=== PATIENT | female | born 1965 | race Caucasian/White ===

== ENCOUNTER 2017-04-04 11:59 | Emergency (ER) | payer OTHER ==
[~2017-04-04] VITALS: Ht 175.3 cm; Wt 82.0 kg
[2017-04-04 12:00] VITALS: BP 137/80; PULSE 80; RESP 16; TEMP 98.4; O2SAT 97
--- NOTE | 2017-04-04 12:11 | PD ---
Physical Exam Time Seen by Provider: 12:08 Narrative 52-year-old female presents emergency Department with complaint of a pulled muscle to her left rib cage area after lifting something into the trunk of her car and coughing at the same time on Sunday. Pain has worsened since after returning back to work. Denies abdominal pain, chest pain, shortness of breath. Patient seen in triage. Vital signs reviewed. Patient awaiting bed placement. Data Data Last Documented VS Vital Signs Date Time Temp Pulse Resp B/P (MAP) Pulse Ox O2 Delivery O2 Flow Rate FiO2 04/04/17 12:00 98.4 80 16 137/80 (99) 97 MDM Supervised Visit with JÚNIOR: No Scripts No Active Prescriptions or Reported Meds Jeanna Miranda Apr 04, 2017 12:11
--- NOTE | 2017-04-04 14:17 | PD ---
HPI Chief Complaint: Pain: Acute or Chronic Time Seen by Provider: 14:08 Travel History International Travel<30 days: No Contact w/Intl Traveler<30days: No Traveled to known affect area: No History of Present Illness HPI 52-year-old female presents or Department with history of sudden onset pain in the left anterior lateral lower rib cage from lifting a suitcase and coughing in exactly the same time. She states she did that 3 days ago. She 's been taking Aleve without much improvement. She denies fever, chills, productive cough or significant shortness of breath other than from the discomfort. Patient works as a [employer] and was unable to go to work and perform her job if she has increased pain with movement and lifting. Patient's pain is 9 out of 10 and worse with movement and cough. She denies abdominal pain or back pain. She has no leg cramps or edema. She has no known drug allergies. PFSH Past Medical History ?: Not Social History Alcohol Use: Yes Tobacco Use: Yes Substance Use: No Allergies-Medications (Allergen,Severity, Reaction): Coded Allergies: No Known Allergies (Unverified , 04/04/17) Reported Meds & Prescriptions Reported Meds & Active Scripts Active No Active Prescriptions or Reported Medications Review of Systems Except as stated in HPI: all other systems reviewed are Neg General / Constitutional: No: Fever Eyes: No: Visual changes HENT: No: Headaches Cardiovascular: No: Chest Pain or Discomfort Respiratory: Positive: Pleuritic Pain, No: Cough, Shortness of Breath, Wheezing , Sneezing Gastrointestinal: No: Abdominal Pain Genitourinary: No: Dysuria Musculoskeletal: Positive: Pain (see history of present illness), No: Myalgias , Arthralgias, Limited ROM Skin: No Rash Neurologic: No: Weakness Psychiatric: No: Depression Endocrine: No: Polydipsia Hematologic/Lymphatic: No: Easy Bruising Physical Exam Narrative GENERAL: Patient appears in moderate distress. SKIN: Warm and dry. Normal color. Normal turgor. No pallor. HEAD: Atraumatic. Normocephalic. EYES: Pupils equal and round. No scleral icterus. No injection or drainage. ENT: No nasal bleeding or discharge. Mucous membranes pink and moist. Pharynx is clear. Airway is patent. NECK: Trachea midline. Supple and nontender. CARDIOVASCULAR: Regular rate and rhythm. RESPIRATORY: No accessory muscle use. Clear to auscultation. Breath sounds equal bilaterally. Patient has decreased breath sounds secondary to pain. Patient is point tenderness in the left lower anterior chest wall without obvious deformity, crepitus, or subcutaneous emphysema. GASTROINTESTINAL: Abdomen soft, non-tender, nondistended. Hepatic and splenic margins not palpable. No CVA tenderness. MUSCULOSKELETAL: Extremities without clubbing, cyanosis, or edema. No obvious deformities. NEUROLOGICAL: Awake and alert. No obvious cranial nerve deficits. Motor grossly within normal limits. Five out of 5 muscle strength in the arms and legs. Normal speech. PSYCHIATRIC: Appropriate mood and affect; insight and judgment normal. Data Data Last Documented VS Vital Signs Date Time Temp Pulse Resp B/P (MAP) Pulse Ox O2 Delivery O2 Flow Rate FiO2 04/04/17 12:00 98.4 80 16 137/80 (99) 97 Orders Orders Ketorolac Inj (Toradol Inj) (04/04/17 14:30) Ribs, Uni (W/Exp Cxr-Min 3vw) (04/04/17 14:17) MDM Medical Decision Making Medical Screen Exam Complete: Yes Emergency Medical Condition: Yes Differential Diagnosis Thoracic wall strain. Possible costochondritis. Possible fracture. Narrative Course Patient is given 60 mg Toradol IM. X-ray of the left ribs and chest are ordered. X-rays are read as negative for acute fracture or rib dislocation. Chest x-ray is normal without pneumothorax. Patient feels improved after the Toradol injection. Patient will be continued on ibuprofen 800 mg 3 times daily with food. #30. Patient also given acetaminophen 500 mg 2 tabs up to 4 times a day #60. Patient should use heat and ice to this area as needed. Note is given for no lifting for one week. Patient follow with primary care physician or return to emergency department as needed Diagnosis Primary Impression: Strain of muscle and tendon of front wall of thorax, initial encounter Additional Impression: Acute costochondritis Referrals: Primary Care Physician Patient Instructions: General Instructions, Thoracic Pain (ED) Departure Forms: Work Release Special Instructions: No lifting for one week. Additional Instructions: X-rays are read as negative for acute fracture or rib dislocation. Chest x-ray is normal without pneumothorax. Patient feels improved after the Toradol injection. Patient will be continued on ibuprofen 800 mg 3 times daily with food. #30. Patient also given acetaminophen 500 mg 2 tabs up to 4 times a day #60. Patient should use heat and ice to this area as needed. Note is given for no lifting for one week. Patient follow with primary care physician or return to emergency department as needed Med/Other Pt SpecificInfo: Prescription(s) given Scripts No Active Prescriptions or Reported Meds Disposition: 01 DISCHARGE HOME Condition: Stable Ignacio Muir Apr 04, 2017 14:17
[2017-04-04] MEDS ORDERED: KETOROLAC TROMETHAMINE 60 MG/2 ML (IM) VIAL IM ONE (14:30)
--- NOTE | 2017-04-04 16:07 | RADRPT ---
EXAM DATE/TIME: 04/04/2017 14:48 [facility] COMPARISON: No previous studies available for comparison. INDICATIONS : Left rib pain after lifting a box and coughing on sunday. MEDICAL HISTORY : None. SURGICAL HISTORY : None. ENCOUNTER: Initial ACUITY: 1 day PAIN SCORE: 9/10 LOCATION: Left chest and ribs. FINDINGS: Multiple views of the left ribs were performed. There is no evidence of displaced fracture. No dest ructive lesions or areas of periosteal thickening are seen. Expiratory view of the chest is negative for pneumothorax. Chronic interstitial changes noted. The mediastinal structures are midline. CONCLUSION: 1. No rib fractures. 2. Chronic interstitial changes within the lungs. Liborio Wagonre Jr., MD on April 04, 2017 at 16:05 Board Certified Radiologist. This report was verified electronically.
[2017-04-04] MEDS ORDERED: MAPA500T13 PO (16:18)
[2017-04-04] MEDS ORDERED: IBUP800T23 PO (16:18)
== END 2017-04-04 16:23 | disposition home or self-care (01) ==
LOC: NEPK 11:59
DX: M94.0 Chondrocostal junction syndrome [Tietze] (principal); Z72.0 Tobacco use
CPT/HCPCS: 71101; 96372; 99284; J1885